=== PATIENT | male | born 1960 | race Caucasian/White ===

== ENCOUNTER → 2016-08-09 | Outpatient (CLI) | payer MEDICARE, OTHER ==
--- NOTE | 2016-08-09 13:27 | XR ---
EXAMINATION TYPE: XR abdomen 1V DATE OF EXAM: 08/09/2016 12:49 PM COMPARISON: NONE INDICATION: Abdomen pain TECHNIQUE: Single view abdomen upright view FINDINGS: There is a normal bowel gas pattern. Some nonspecific small bowel gas is present. Psoas margins are normal. No organomegaly is present. No suspicious calcifications are present. Phlebolith is likely within the pelvis. IMPRESSION: 1. Unremarkable Abdomen
== END | disposition home or self-care (01) ==
LOC: LABWHC1 12:34
PROVIDERS: ATTEND Family Medicine
DX: R10.84 Generalized abdominal pain (principal)
CPT/HCPCS: 74000

== ENCOUNTER → 2016-11-27 | Outpatient (CLI) | payer MEDICARE, OTHER ==
[2016-11-27 10:31] LABS: Basophils % (A) 0 %; CHCM 32.2; Eosinophils # (A) 0.3 k/uL (0-0.7); Eosinophils % (A) 3 %; HCT 49.4 % (39.0-53.0); HDW 2.77; HGB 15.6 gm/dL (13.0-17.5); Luc # (Auto) 0.24; Luc % (Auto) 3; Lymphocytes # (A) 2.2 k/uL (1.0-4.8); Lymphocytes % (A) 23 %; MCH 31.6 pg (25.0-35.0); MCHC 31.6 g/dL (31.0-37.0); MCV 99.9 fL (80.0-100.0); Macrocytosis Slight; Mean Platelet Volume 7.4; Monocytes # (A) 0.8 k/uL (0-1.0); Monocytes % (A) 8 %; Neutrophils # (A) 6.1 k/uL (1.3-7.7); Neutrophils % (A) 63 %; RBC 4.94 m/uL (4.30-5.90); RDW 14.5 % (11.5-15.5); WBC 9.7 k/uL (3.8-10.6); WBC (Perox) 9.73
[2016-11-27 12:17] LABS: Bilirubin, Delta 0.4 mg/dL (0.0-0.2); Total Bilirubin 0.6 mg/dL (0.2-1.3); Total Protein 6.8 g/dL (6.3-8.2)
== END | disposition home or self-care (01) ==
LOC: LABWHC1 10:09
PROVIDERS: ATTEND Nurse Practitioner Family
DX: Z51.81 Encounter for therapeutic drug level monitoring (principal); Z79.899 Other long term (current) drug therapy
CPT/HCPCS: 36415; 80076; 80164; 85025

== ENCOUNTER → 2016-12-15 | Outpatient (CLI) | payer MEDICARE, OTHER ==
--- NOTE | 2016-12-15 11:56 | XR ---
EXAMINATION TYPE: XR hand complete RT DATE OF EXAM: 12/15/2016 CLINICAL HISTORY: Hand pain laterally after punching a counter. TECHNIQUE: Frontal, lateral and oblique images of the right hand are obtained. COMPARISON: None. FINDINGS: There is a comminuted and impacted fracture of the base of the fifth metacarpal with 1.7 mm displacement radially of the distal fracture fragment and approximately 2 mm impaction. This fractur e is comminuted with fracture line extending into the articular surface of the carpal metacarpal join t. No secondary fracture is identified. Overlying soft tissue swelling is noted of the lateral hand. No subcutaneous emphysema or radiopaque foreign body. IMPRESSION: Comminuted, impacted fracture of the base of the fifth metacarpal with extension intra-ar ticularly and minimal displacement. Overlying associated soft tissue swelling of the lateral hand is present.
== END | disposition home or self-care (01) ==
LOC: RADXRMAIN 11:29
PROVIDERS: ATTEND Family Medicine
DX: S62.316A Displaced fracture of base of fifth metacarpal bone, right hand, initial encounter for closed fracture (principal)

== ENCOUNTER → 2017-07-27 | Outpatient (CLI) | payer MEDICARE, OTHER ==
[2017-07-27 09:24] LABS: Basophils % (A) 0 %; Eosinophils # (A) 0.2 k/uL (0-0.7); Eosinophils % (A) 3 %; HCT 43.6 % (39.0-53.0); HGB 14.5 gm/dL (13.0-17.5); Lymphocytes # (A) 2.3 k/uL (1.0-4.8); Lymphocytes % (A) 26 %; MCH 31.1 pg (25.0-35.0); MCHC 33.3 g/dL (31.0-37.0); MCV 93.3 fL (80.0-100.0); Mean Platelet Volume 6.9; Monocytes # (A) 0.7 k/uL (0-1.0); Monocytes % (A) 8 %; Neutrophils # (A) 5.3 k/uL (1.3-7.7); Neutrophils % (A) 60 %; Platelet Count 179 k/uL (150-450); RBC 4.67 m/uL (4.30-5.90); RDW 13.6 % (11.5-15.5); WBC 8.8 k/uL (3.8-10.6)
[2017-07-27 09:43] LABS: Albumin 3.9 g/dL (3.5-5.0); Bilirubin, Delta 0.3 mg/dL (0.0-0.2); Bilirubin,Unconjugated 0.1 mg/dL (0.0-1.1); Total Bilirubin 0.4 mg/dL (0.2-1.3); Total Protein 6.7 g/dL (6.3-8.2)
[2017-07-27 09:48] LABS: Valproic Acid (Depakene) 70.4 ug/mL
== END | disposition home or self-care (01) ==
LOC: LABWHC1 08:28
PROVIDERS: ATTEND Nurse Practitioner Family
DX: Z51.81 Encounter for therapeutic drug level monitoring (principal); Z79.899 Other long term (current) drug therapy
CPT/HCPCS: 36415; 80076; 80164; 85025

== ENCOUNTER → 2017-12-01 | Outpatient (CLI) | payer MEDICARE, OTHER ==
--- NOTE | 2017-12-01 15:37 | CT ---
EXAMINATION TYPE: CT abdomen pelvis wo/w con DATE OF EXAM: 12/01/2017 COMPARISON: None INDICATION: Generalized abdominal pain. DLP: 2225 mGycm, Automated exposure control for dose reduction was used. CONTRAST: 100 mL of Isovue 370. Study performed with Oral Contrast TECHNIQUE: Axial images were obtained from above the diaphragm to the pubic rami in the axial plane a t 5 mm thick sections. Reconstructed images are reviewed on the computer in the coronal plane. FINDINGS: Limited CT sections are obtained the lung bases. The lung bases are clear. CT ABDOMEN: Liver: Normal Spleen: Normal Pancreas: Normal Adrenal glands: The adrenal glands are normal. Gallbladder: Not identified. Correlate with surgical history. Kidneys: No masses are evident. No hydronephrosis is present. No cysts are present. No renal stone s are identified. Aorta: Vascular calcification is within the aorta. Inferior vena cava: There is slight inferior vena cava which can be related to the volume status. CT PELVIS: Loops of bowel within the abdomen and pelvis are normal. There are loops of bowel which are incom pletely distended or lack oral contrast limiting their evaluation. Large fecal bolus at the level the rectum. Appendix: Normal as visualized. Urinary bladder: Normal. Genitourinary structures: Prostate appears within normal limits. Osseous structures: No suspicious lytic or sclerotic lesions. IMPRESSIONS: 1. Nonspecific abdomen. Note suspicious abnormality to account for generalized abdominal pain is manuel ntified. 2. Large fecal bolus at the level the rectum. Correlate for fecal impaction.
== END | disposition home or self-care (01) ==
LOC: RADCTMAIN 12:57
PROVIDERS: ATTEND Family Medicine
DX: R10.9 Unspecified abdominal pain (principal)
CPT/HCPCS: 74178; Q9967

== ENCOUNTER 2018-03-13 11:53 | Emergency (ER) | payer MEDICARE, OTHER ==
[2018-03-13 12:20] VITALS: RESP 18
--- NOTE | 2018-03-13 13:55 | ED ---
General Adult HPI - General Chief complaint: Extremity Injury, Lower Stated complaint: Lt ankle pain/Fall Source: patient, RN notes reviewed, old records reviewed Mode of arrival: ambulatory Limitations: no limitations - History of Present Illness Initial comments: 49-year-old male patient past medical history of cognitive delay, autism presents to ED after sustaining a slip and fall last night. The fall was not witnessed. Patient is preventing with caregiver with painful left ankle, patient has some localized ecchymoses on lateral aspect of left ankle. Patient is ambulatory but with antalgic gait. Patient is not on blood thinners. Patient denies hitting head or neck and fall. Patient denies loss of consciousness. Patient has baseline diminished vision, blind in right eye, but denies changes in vision. Patient denies abdominal pain, nausea vomiting diarrhea, dysuria or any other complaints. Systemic: Pt denies fatigue, myalgia, fever/chills, rash. Pt denies weakness, night sweats, weight loss. Neuro: Pt denies headache, visual disturbances, syncope or pre-syncope. HEENT: Pt denies ocular discharge or irritation, otalgia, rhinorrhea, pharyngitis or notable lymphadenopathy. Cardiopulmonary: Pt denies chest pain, SOB, heart palpitations, dyspnea on exertion. Abdominal/GI: Pt denies abdominal pain, n/v/d. : Pt denies dysuria, burning w/ urination, frequency/urgency. Denies new onset urinary or bowel incontinence. MSK: Pt denies myalgia, loss of strength or function in extremities. Neuro: Pt denies new onset weakness, paresthesias. - Related Data Home Medications Medication Instructions Recorded Confirmed Divalproex [Depakote] 250 mg PO HS 10/12/15 10/15/15 Divalproex [Depakote] 500 mg PO QA 10/12/15 10/15/15 Famotidine [Pepcid AC] 10 mg PO BID 10/12/15 10/15/15 Propranolol [Inderal] 10 mg PO BID 10/12/15 10/15/15 traZODone HCL [Desyrel] 50 mg PO HS 10/12/15 10/15/15 Previous Rx's Medication Instructions Recorded HYDROcodone/APAP 7.5-325MG [[place] 1 each PO Q4H PRN #60 tab 07/11/16 7.5] Ibuprofen [Motrin] 600 mg PO Q6HR PRN #40 day 03/13/18 Allergies Allergy/AdvReac Type Severity Reaction Status Date / Time No Known Allergies Allergy Verified 03/13/18 12:20 Review of Systems ROS Statement: Those systems with pertinent positive or pertinent negative responses have been documented in the HPI. ROS Other: All systems not noted in ROS Statement are negative. 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 MENTALLY IMPAIRED, AUTISTIC, SISTER STATES "VERY FRIENDLY AND TALKATIVE" History of Any Multi-Drug Resistant Organisms: None Reported Additional Past Surgical History / Comment(s): HAD ALL OF HIS TEETH REMOVED, HAS HAD CORRECTIVE EYE SX X2 Past Anesthesia/Blood Transfusion Reactions: No Reported Reaction Smoking Status: Never smoker Past Alcohol Use History: None Reported Past Drug Use History: None Reported - Past Family History Sister(s) Family Medical History: Blood Disorder Additional Family Medical History / Comment(s): LOW PLATELETS General Exam - General Exam Comments Initial Comments: Constitutional: NAD, AOX3, Pt has pleasant affect. HEENT: NC/AT, trachea midline, neck supple, no lymphadenopathy. Posterior pharynx non erythematous, without exudates. External ears appear normal, without discharge. Mucous membranes moist. Eyes PERRLA, EOM intact. There is no scleral icterus. No pallor noted. Cardiopulmonary: RRR, no murmurs, rubs or gallops, no JVD noted. Lungs CTAB in anterior and posterior avelar. No peripheral edema. Abdominal exam: Abdomen soft and non-distended. Abdomen non-tender to palpation in all 4 quadrants. Bowel sounds active in LLQ. No hepatosplenomegaly. No ecchymosis Neuro: CN II-XII grossly intact. No nuchal rigidity. MSK: Left ankle has mild ecchymoses on the lateral aspect, mildly edematous. Mildly tender to palpation. Proximal tib-fib nontender. No other injuries noted, all joints and long bones examined, patient has been nontender to palpation. No posterior calf tenderness bilaterally, homans sign negative bilaterally. Posterior tibialis and radial pulse +2 bilaterally. Derm: All skin on body examined, no ecchymoses other than left ankle. Limitations: no limitations Course Vital Signs 03/13/18 12:14 Temperature 97.4 F L Pulse Rate 72 Respiratory 18 Rate Blood Pressure 150/89 O2 Sat by Pulse 98 Oximetry Medical Decision Making - Medical Decision Making 49-year-old female patient presents to ED with left ankle injury after sustaining fall yesterday. Fall was not witnessed. Physical exam displayed some tenderness to the left lateral ankle, ecchymoses. Patient is ambulatory with antalgic gait. CT of head Display any acute process. Plain film of left ankle displayed distal fibular fracture. Patient to be put and posterior ankle splint, to be nonweightbearing. Patient to follow up with orthopedic in 1-2 days. Patient to follow with primary care physician in one to 2 days. Case discussed with Dr. Mazariegos. Patient to return to ED if any signs symptoms develop including worsening pain, redness, edema, chest pain, shortness breath, any other new symptoms. Disposition Clinical Impression: Fracture of distal fibula Disposition: HOME SELF-CARE Condition: Good Instructions: Leg Fracture (ED) Additional Instructions: Patient to adhere to previously discussed treatment plan and will take medication(s) as directed. Patient to follow up with PCP in 1-2 days. Patient to return to ED if symptoms do not improve. Prescriptions: Ibuprofen [Motrin] 600 mg PO Q6HR PRN #40 day PRN Reason: Pain Is patient prescribed a controlled substance at d/c from ED?: No Referrals: Yair Bailey DO [Primary Care Provider] - 1-2 days Cynthia Lindsey NPC [Nurse Practitioner] - 1-2 days Time of Disposition: 14:23
--- NOTE | 2018-03-13 14:14 | XR ---
Left ankle HISTORY: Trauma and pain 3 views of the left ankle There is a lucency through the distal metaphyseal left fibula. There is associated soft tissue swelli ng. No definite dislocation, suspect there is some widening of the tibiotalar joint however. Proximal fifth metatarsal not well seen. IMPRESSION: Nondisplaced distal fibular fracture. There may be associated ligamentous disruption, ghassan e limitation as described.
--- NOTE | 2018-03-13 14:16 | CT ---
EXAMINATION TYPE: CT brain clinton raza DATE OF EXAM: 03/13/2018 COMPARISON: NONE HISTORY: Fall CT DLP: 2319.9 mGycm Automated exposure control for dose reduction was used. TECHNIQUE: CT scan of the head and cervical spine are performed without contrast. FINDINGS: BRAIN: There are generalized changes of sulcal prominence and ventriculomegaly, compatible with atrop hic change. Central structures are midline. There is no evidence of hydrocephalus. No acute focal lesion, mass ef fect or midline shift is seen. I do not see evidence of intracranial blood. Visualized portions of the paranasal sinuses and mastoids are clear. The bony calvarium is intact. IMPRESSION: NO ACUTE INTRACRANIAL ABNORMALITY. CERVICAL SPINE: Visualized portions of the lungs are clear. Paraspinal soft tissues are normal. Vertebral body height and alignment are maintained. Atlantoaxial relationships are normal. There is m ild hypertrophic spondylosis at C5-6. No protrusions are identified. No fractures are identified. IMPRESSION: 1. NO ACUTE OSSEOUS LESION. 2. MILD DEGENERATIVE CHANGE.
[2018-03-13 14:49] VITALS: BP 161/92; PULSE 69; TEMP 98.8
== END 2018-03-13 14:47 | disposition home or self-care (01) ==
LOC: EC 11:53
DX: S82.832A Other fracture of upper and lower end of left fibula, initial encounter for closed fracture (principal); H54.61 Unqualified visual loss, right eye, normal vision left eye; F84.0 Autistic disorder; Z79.899 Other long term (current) drug therapy; W01.0XXA Fall on same level from slipping, tripping and stumbling without subsequent striking against object, initial encounter
CPT/HCPCS: 29515; 70450; 72125; 99284

== ENCOUNTER → 2018-04-28 | Outpatient (CLI) | payer MEDICARE, OTHER ==
--- NOTE | 2018-04-28 11:26 | XR ---
EXAMINATION TYPE: XR abdomen 1V DATE OF EXAM: 04/28/2018 COMPARISON: NONE HISTORY: Pain TECHNIQUE: Single supine KUB image of the abdomen is obtained FINDINGS: Small bowel demonstrates no evidence for dilatation or air fluid levels. Gas and fecal material is seen in non-distended colon. No convincing evidence for pneumoperitoneum. No unusual calcifications. The lung bases are clear. The osseous structures are intact. IMPRESSION: 1. Overall nonobstructive bowel gas pattern. Mild fecal stasis noted.
[2018-04-28 12:17] LABS: Basophils % (A) 0 %; Eosinophils # (A) 0.1 k/uL (0-0.7); Eosinophils % (A) 2 %; HCT 45.1 % (39.0-53.0); HGB 14.3 gm/dL (13.0-17.5); Lymphocytes # (A) 2.3 k/uL (1.0-4.8); Lymphocytes % (A) 33 %; MCH 30.2 pg (25.0-35.0); MCHC 31.6 g/dL (31.0-37.0); MCV 95.5 fL (80.0-100.0); Mean Platelet Volume 6.1; Monocytes # (A) 0.5 k/uL (0-1.0); Monocytes % (A) 6 %; Neutrophils % (A) 56 %; Platelet Count 226 k/uL (150-450); RBC 4.73 m/uL (4.30-5.90); RDW 13.9 % (11.5-15.5); WBC 7.1 k/uL (3.8-10.6)
[2018-04-28 18:17] LABS: Valproic Acid (Depakene) 51.9 ug/mL (50.0-100.0)
[2018-04-28 18:25] LABS: Albumin 3.9 g/dL (3.80-4.90); Albumin/Globulin Ratio 1.63 (1.20-2.10); Bilirubin, Conjugated 0.2 mg/dL (0.20-0.40); Bilirubin,Unconjugated 0.4 mg/dL; Globulin 2.4 g/dL (1.6-3.3); LDL Cholesterol,Calculated 87.8 mg/dL (0.0-131.0); Total Bilirubin 0.6 mg/dL (0.2-1.2); Total Protein 6.3 g/dL (6.2-8.2); VLDL Calculation 32.2 mg/dL (5.00-40.00)
[2018-04-28 18:33] LABS: T4, Free (Free Thyroxine) 1.1 ng/dL (0.80-1.80)
[2018-04-28 20:03] LABS: Hemoglobin A1C 5.3 % (4.0-6.0)
== END | disposition home or self-care (01) ==
LOC: LABWHC1 10:52
PROVIDERS: ATTEND Nurse Practitioner Family
DX: K59.00 Constipation, unspecified (principal); Z79.899 Other long term (current) drug therapy
CPT/HCPCS: 36415; 74018; 80061; 80076; 80164; 82947; 83036; 84439; 84443; 85025

== ENCOUNTER → 2018-05-31 | Outpatient (CLI) | payer MEDICARE, OTHER ==
--- NOTE | 2018-05-31 22:22 | XR ---
EXAMINATION TYPE: XR tibia fibula LT DATE OF EXAM: 05/31/2018 CLINICAL HISTORY: Left leg fracture. TECHNIQUE: Two views of the left leg are obtained. COMPARISON: Left ankle x-ray March 13, 2018. FINDINGS: There is no new acute fracture or dislocation seen in the left tibia or fibula. Minimally displaced oblique fracture through lateral malleolus is redemonstrated with stable alignment. No sign ificant interval callus formation is present. The visualized left knee joint appears within normal l imits. The overlying soft tissue appears unremarkable. IMPRESSION: There is stable alignment of oblique minimally displaced lateral malleolus fracture. No new or additional fracture is seen.
== END ==
LOC: RADXRMAIN 17:24
PROVIDERS: ATTEND Family Medicine
DX: S82.832A Other fracture of upper and lower end of left fibula, initial encounter for closed fracture (principal)

== ENCOUNTER → 2018-07-05 | Outpatient (CLI) | payer MEDICARE, OTHER ==
--- NOTE | 2018-07-06 07:39 | XR ---
EXAMINATION TYPE: XR ankle complete LT DATE OF EXAM: 07/05/2018 COMPARISON: 03/13/2018 HISTORY: Pain FINDINGS: Three views of the ankle demonstrate the ankle mortise to be intact and symmetric. There is a deformi ty of the distal fibula compatible with previous fracture. Remaining osseous structures intact. IMPRESSION: 1. No definite acute fracture or dislocation, if symptoms persist follow-up study in 7 to 10 days wou ld be suggested. 2. Chronic appearing deformity of the distal fibula compatible with the patient's history of previous fracture with near complete healing.
== END ==
LOC: RADXRMAIN 17:13
PROVIDERS: ATTEND Family Medicine
DX: M21.962 Unspecified acquired deformity of left lower leg (principal)

== ENCOUNTER → 2019-12-22 | Outpatient (CLI) | payer MEDICARE, OTHER ==
[2019-12-22 10:24] LABS: Basophils % (A) 0 %; Eosinophils # (A) 0.1 k/uL (0-0.7); Eosinophils % (A) 1 %; HCT 47.3 % (39.0-53.0); HGB 15.7 gm/dL (13.0-17.5); Lymphocytes # (A) 2.1 k/uL (1.0-4.8); Lymphocytes % (A) 27 %; MCH 30.5 pg (25.0-35.0); MCHC 33.2 g/dL (31.0-37.0); MCV 91.9 fL (80.0-100.0); Monocytes # (A) 0.4 k/uL (0-1.0); Monocytes % (A) 6 %; Neutrophils # (A) 4.8 k/uL (1.3-7.7); Neutrophils % (A) 64 %; Platelet Count 227 k/uL (150-450); RBC 5.15 m/uL (4.30-5.90); RDW 13.1 % (11.5-15.5); WBC 7.5 k/uL (3.8-10.6)
[2019-12-22 16:51] LABS: Albumin 4.1 g/dL (3.80-4.90); Albumin/Globulin Ratio 1.95 (1.60-3.17); Bilirubin, Conjugated 0.2 mg/dL (0.20-0.40); Bilirubin,Unconjugated 0.4 mg/dL; Chol/HDL Ratio 3.84; Globulin 2.1 g/dL (1.6-3.3); LDL Cholesterol,Calculated 100.4 mg/dL (0.0-131.0); Total Bilirubin 0.6 mg/dL (0.2-1.2); Total Protein 6.2 g/dL (6.2-8.2); VLDL Calculation 24.6 mg/dL (5.00-40.00)
[2019-12-22 16:58] LABS: T4, Free (Free Thyroxine) 0.9 ng/dL (0.80-1.80)
[2019-12-22 19:01] LABS: Hemoglobin A1C 5.4 % (4.0-6.0)
== END | disposition home or self-care (01) ==
LOC: LABWHC1 09:21
PROVIDERS: ATTEND Nurse Practitioner Family
DX: Z51.81 Encounter for therapeutic drug level monitoring (principal); Z79.899 Other long term (current) drug therapy
CPT/HCPCS: 36415; 80061; 80076; 82947; 83036; 84439; 84443; 85025

== ENCOUNTER → 2020-03-13 | Outpatient (CLI) | payer MEDICARE, OTHER ==
--- NOTE | 2020-03-13 16:05 | XR ---
EXAMINATION TYPE: XR foot complete LT DATE OF EXAM: 03/13/2020 COMPARISON: None HISTORY: Pain TECHNIQUE: Left foot is examined in 3 projections FINDINGS: There is a transverse fracture of the distal portion proximal phalanx left great toe. There may be some comminution and displacement on the lateral projection. No additional fractures are identified. Soft tissues appear normal. There is valgus deformity of the distal fourth and fifth digits IMPRESSION: 1. Transverse fracture distal portion proximal phalanx left great toe
== END | disposition home or self-care (01) ==
LOC: RADXRMAIN 12:23
PROVIDERS: ATTEND Family Medicine
DX: S92.412A Displaced fracture of proximal phalanx of left great toe, initial encounter for closed fracture (principal)